=== PATIENT | male | born 1945 | race Caucasian/White ===

== ENCOUNTER 2022-09-14 03:46 | Day surgery (SDC) | payer OTHER ==
[2022-09-08 17:52] VITALS: BMI 25.7
[2022-09-14 07:44] VITALS: RESP 18
[2022-09-14] MEDS ORDERED: PROPOFOL 20 ML ONE (09:39)
[2022-09-14] MEDS ORDERED: MIDAZOLAM HCL 2 MG/2 ML SINGLE DOSE VIAL ONE (09:39)
[2022-09-14 11:38] VITALS: BP 112/81; PULSE 81; TEMP 97.8
== END 2022-09-14 11:50 | disposition home or self-care (01) ==
LOC: JASU-SURG 03:46
PROVIDERS: ATTEND Urology
PROC: 0TF3XZZ Fragmentation in Right Kidney Pelvis, External Approach (ICD-10-PCS; principal; 2022-09-14 09:30)
DX: N20.0 Calculus of kidney (principal)
CPT/HCPCS: 82962